=== PATIENT | female | born 1965 | race Hispanic/Latino ===

== ENCOUNTER 2019-01-10 15:03 | Outpatient (CLI) | payer OTHER ==
[2019-01-10] MEDS ORDERED: ISOVUE-370 76%-LOCM 1 ML ONE (15:29)
--- NOTE | 2019-01-10 16:28 | CT ---
EXAM: ABDOMEN AND PELVIC CT SCAN WITH IV CONTRAST: 01/10/19 HISTORY: Weight loss, distention and swelling. COMPARISON: 11/30/11. FINDINGS: Very minute linear stranding in the lower lung zones. In the inferior left breast there is a somewhat triangular shaped asymmetric density, nonspecific from this study, consider followup mammography for further assessment. Status post cholecystectomy. The liver is unremarkable. No ductal dilatation. Th e pancreas, spleen, and adrenal glands are unremarkable. There is slight fullness of the upper renal collecting systems bilaterally, slightly more prominent on the left side but no evidence for overt ac deering obstruction. No renal calculus. No CT evidence for acute appendicitis with a normal appearing appendix. Status post laminectomy changes of the lower lumbar spine. There is incomplete filling of t he colon with an appearance suggesting potential of some minimal wall thickening although this is pro bably just related to underdistention. The uterus and adnexal regions are unremarkable. Unremarkable urinary bladder. No abscess or abnormal fluid collection. IMPRESSION: Questionable 0.9 cm diameter, somewhat triangular shaped parenchymal density opacity in the inferior left breast region, consider followup mammography. There was a somewhat asymmetric density seen on pr evious 02/08/17 mammogram in the lower left breast which could potentially account for this, although I feel that a followup mammogram at this time is recommended to rule out a developing new process. St atus post cholecystectomy without ductal dilatation. No free intraperitoneal fluid or abscess. Small fat containing umbilical hernia. Some incomplete filling of the colon particularly the left colon wi th a somewhat thickened walled appearance but I feel this is related to underdistention. No other sig nificant acute process. POS: [facility]
== END 2019-01-10 15:04 | disposition home or self-care (01) ==
LOC: BICCT 15:03
PROVIDERS: ATTEND Family Medicine
DX: R19.05 Periumbilic swelling, mass or lump (principal); R91.8 Other nonspecific abnormal finding of lung field; K42.9 Umbilical hernia without obstruction or gangrene; Z90.49 Acquired absence of other specified parts of digestive tract
CPT/HCPCS: 74177; Q9966

== ENCOUNTER 2019-01-16 14:38 | Outpatient (CLI) | payer OTHER ==
--- NOTE | 2019-01-16 15:37 | MMO ---
Bilateral MAMMO Bilat Diag [facility]. CLINICAL HISTORY: Patient is 53 years old and is seen for diagnostic exam. The patient has no family history of breast cancer. The patient has no personal history of cancer. VIEWS: The views performed were: bilateral craniocaudal with tomosynthesis; bilateral mediolateral oblique with tomosynthesis; and bilateral mediolateral. FILMS COMPARED: The present examination has been compared to prior imaging studies performed at [facility] on 02/08/2016, 02/08/2017 and 01/16/2019. MAMMOGRAM FINDINGS: There are scattered fibroglandular densities. There is a low density, oval mass measuring 9 millimeters with obscured margins seen in the posterior region of the left breast at 6 o'clock. This corresponds to the CT finding. The mass was shown to be a cyst on ultrasound. There are no suspicious masses, suspicious calcifications, or new areas of architectural distortion. IMPRESSION: THERE IS NO MAMMOGRAPHIC EVIDENCE OF MALIGNANCY. A ROUTINE FOLLOW-UP MAMMOGRAM IN 1 YEAR IS RECOMMENDED. THE RESULTS OF THIS EXAM WERE SENT TO THE PATIENT. ACR BI-RADS Category 2 - Benign finding MAMMOGRAPHY NOTE: 1. A negative mammogram report should not delay a biopsy if a dominant of clinically suspicious mass is present. 2. Approximately 10% to 15% of breast cancers are not detected by mammography. 3. Adenosis and dense breasts may obscure an underlying neoplasm.
--- NOTE | 2019-01-16 15:44 | ULT ---
LIMITED LEFT BREAST ULTRASOUND: 01/16/19 PROVIDED CLINICAL HISTORY: Nodule seen on CT and mammogram. FINDINGS: Limited sonographic interrogation was performed of the left breast in the 6 o'clock location. Adjacen t simple appearing cysts are seen, the larger of which measures about 9 mm. No concerning sonographic findings are present at the 6 o'clock position of the left breast. IMPRESSION: BIRADS 2: Benign Finding(s) Routine annual screening mammography (for women over age 40). POS: OFF
== END 2019-01-16 14:39 | disposition home or self-care (01) ==
LOC: BICMAMMO 14:38
PROVIDERS: ATTEND Family Medicine
DX: N64.89 Other specified disorders of breast (principal)
CPT/HCPCS: 77066; G0279